=== PATIENT | male | born 1985 | race Caucasian/White ===

== ENCOUNTER 2017-08-11 16:56 | Emergency (ER) | payer SELFPAY ==
--- NOTE | 2017-08-11 17:05 | EDPHY ---
H & P Time Seen by Provider: 08/11/17 17:05 HPI/ROS: CHIEF COMPLAINT: Alcohol withdrawal HISTORY OF PRESENT ILLNESS: Patient is a 31-year-old man who is here with his girlfriend complaining of alcohol withdrawal. He states that he drinks about a Liter of hard alcohol daily for the last 3 years but stopped 24 hr ago. He is tremulous and anxious. No nausea vomiting or GI symptoms. He has never withdrawn before. No hallucinations. No seizures. REVIEW OF SYSTEMS: Constitutional: denies: chills, fever, recent illness, recent injury EENTM: denies: blurred vision, double vision, nose congestion Respiratory: denies: cough, shortness of breath Cardiac: Tachycardic denies: chest pain, irregular heart rate, lightheadedness , palpitations Gastrointestinal/Abdominal: denies: abdominal pain, diarrhea, nausea, vomiting, blood streaked stools Genitourinary: denies: dysuria, frequency, hematuria, pain Musculoskeletal: denies: joint pain, muscle pain Skin: denies: lesions, rash, jaundice, bruising Neurological: Anxious, tremulous denies: headache, numbness, paresthesia, tingling, dizziness, weakness Hematologic/Lymphatic: denies: blood clots, easy bleeding, easy bruising Immunologic/allergic: denies: HIV/AIDS, transplant EXAM: GENERAL: Well-appearing, well-nourished and in no acute distress. HEAD: Atraumatic, normocephalic. EYES: Pupils equal round and reactive to light, extraocular movements intact, sclera anicteric, conjunctiva are normal. ENT: TMs normal, nares patent, oropharynx clear without exudates. Moist mucous membranes. NECK: Normal range of motion, supple without lymphadenopathy or JVD. LUNGS: Breath sounds clear to auscultation bilaterally and equal. No wheezes rales or rhonchi. HEART: Slightly tachycardic Regular rate and rhythm without murmurs, rubs or gallops. ABDOMEN: Soft, nontender, normoactive bowel sounds. No guarding, no rebound. No masses appreciated. BACK: No CVA tenderness, no spinal tenderness, step-offs or deformities EXTREMITIES: Normal range of motion, no pitting or edema. No clubbing or cyanosis. NEUROLOGICAL: Tremulous, anxious Cranial nerves II through XII grossly intact. Normal speech, normal gait. 5/5 strength, normal movement in all extremities , normal sensation PSYCH: Normal mood, normal affect. SKIN: Warm, dry, normal turgor, no visible rashes or lesions. Source: Patient, Family Exam Limitations: No limitations - Medical/Surgical History Hx Asthma: No Hx Chronic Respiratory Disease: No Hx Diabetes: No Hx Cardiac Disease: No Hx Renal Disease: No Hx Cirrhosis: No Hx Alcoholism: Yes Hx HIV/AIDS: No - Family History Significant Family History: No pertinent family hx - Social History Smoking Status: Never smoked Alcohol Use: None Constitutional: Initial Vital Signs Temperature (C) 36.9 C 08/11/17 17:01 Heart Rate 126 H 08/11/17 17:01 Respiratory Rate 18 08/11/17 17:01 Blood Pressure 121/86 H 08/11/17 17:01 O2 Sat (%) 94 08/11/17 17:01 O2 Delivery Mode Room Air Allergies/Adverse Reactions: Penicillins Allergy (Verified 08/11/17 17:13) Home Medications: Medication Instructions Recorded NK [No Known Home Meds] 08/11/17 Medical Decision Making ED Course/Re-evaluation: 5:40 p.m. the patient is doing much better. He states that he feels the effects of the medication. He is still slightly tachycardic at 106. I will treat with another dose of Ativan and fluids. 6:30 p.m. the patient is feeling much better. His tremors have result. Is no longer tachycardic. We will [facility]. With Librium Differential Diagnosis: Partial list of the Differential diagnosis considered include but were not limited to; alcohol withdrawal, anxiety, dehydration and although unlikely based on the history and physical exam, I also considered infection, head injury. I discussed these differential diagnoses and the plan with the patient as well as the usual and expected course. The patient understands that the diagnosis is provisional and that in medicine we are not always correct and that further workup is often warranted. Usual and customary warnings were given. All of the patient's questions were answered. The patient was instructed to return to the emergency department should the symptoms at all worsen or return, otherwise to followup with the physician as we discussed. - Data Points Medications Given: Discontinued Medications Chlordiazepoxide (Librium 25 Mg Prepack#6) 1 btl TAKEHOME EDNOW ONE Stop: 08/11/17 18:24 Last Admin: 08/11/17 18:51 Dose: 1 btl Lorazepam (Ativan Injection) 1 mg IVP EDNOW ONE Stop: 08/11/17 17:07 Last Admin: 08/11/17 17:19 Dose: 1 mg Lorazepam (Ativan Injection) 1 mg IVP EDNOW ONE Stop: 08/11/17 17:51 Last Admin: 08/11/17 18:14 Dose: 1 mg Departure - Departure Disposition: Home, Routine, Self-Care Clinical Impression: Alcohol withdrawal Qualifiers: Complication of substance-induced condition: uncomplicated Qualified Code(s): F10.230 - Alcohol dependence with withdrawal, uncomplicated Condition: Fair Instructions: Chlordiazepoxide (By mouth), Alcohol Withdrawal (ED) Additional Instructions: Go to the alcohol recovery [facility] as instructed Referrals: Patient,NotPresent [Unknown] - As per Instructions Byron Carver MD [[facility] [place] Primary Care Provider] - As per Instructions
[2017-08-11] MEDS ORDERED: LORazepam 2 MG/ML INJ IVP ONE ×2 (17:06→17:50)
[2017-08-11] MEDS ORDERED: CHLORDIAZEPOXIDE 25MG PREPK#6 BTL TAKEHOME ONE (18:23)
[2017-08-11 18:57] VITALS: BP 134/84
== END 2017-08-11 18:58 | disposition home or self-care (01) ==
LOC: EDBD 16:56
DX: F10.230 Alcohol dependence with withdrawal, uncomplicated (principal)
CPT/HCPCS: 96374; J2060